=== PATIENT | female | born 1970 | race Caucasian/White ===

== ENCOUNTER 2022-06-03 04:14 | Emergency (ER) | payer BC, OTHER ==
[~2022-06-03] VITALS: Ht 149.9 cm; Wt 54.5 kg
[2022-06-03] MEDS ORDERED: MORPHINE SULFATE 4 MG/ML CPJ (NOT FOR IM USE) IV STA (05:09)
[2022-06-03 05:35] LABS: BASOPHILS % 0.7 % (0.0-2.0); EOSINOPHILS % 2.9 % (0.0-5.0); HEMATOCRIT. 41.4 % (36.0-48.0); HEMOGLOBIN. 13.9 g/dL (12.0-16.0); LYMPHOCYTES % 18.6 % (20.0-50.0); MEAN CORPUSCULAR HEMOGLOBIN 27.9 pg (28.0-32.0); MEAN CORPUSCULAR VOLUME 83.2 fL (81.0-99.0); MEAN PLATELET VOLUME 7.8 fl (7.4-10.4); MONOCYTES % 7.5 % (2.0-8.0); NEUTROPHILS % 70.3 % (40.0-76.0); PLATELET 327 x1000/uL (130-400); RED BLOOD CELL COUNT 4.98 mill/uL (4.2-5.4); RED CELL DISTRIBUTION WIDTH 13.2 % (11.6-14.6)
[2022-06-03 05:38] LABS: CHLORIDE 105 mEq/L (98-107)
[2022-06-03] MEDS: LABETALOL HCL VIAL 20 MG/4 ML VIAL IV ONE ×2 (05:46→05:55)
[2022-06-03] MEDS ORDERED: ASPIRIN 325MG EC TABLET PO ONE (06:00)
[2022-06-03] MEDS ORDERED: AMLODIPINE 5MG TABLET PO ONE (09:30)
[2022-06-03 10:03] VITALS: BP 152/73
== END 2022-06-03 10:04 | disposition home or self-care (01) ==
LOC: ER 04:14
DX: R07.89 Other chest pain (principal); I10 Essential (primary) hypertension
CPT/HCPCS: 36415; 71045; 80053; 83880; 84484; 85025; 93005; 96374; 99285; J3490